=== PATIENT | male | born 1995 | race Two or more races ===

== ENCOUNTER 2025-02-23 03:20 | Emergency (ER) | payer SELFPAY ==
[2025-02-23 03:28] VITALS: BP 106/46; PULSE 110; RESP 19; TEMP 36.6; O2SAT 97; BMI 28.3
--- NOTE | 2025-02-23 03:34 | EKG_ITS ---
[facility] Test Date: 2025-02-23 Pat Name: Jung Glynn Department: Room: - Gender: Male Boiler Maker: : 1995 Requested By: Michael De Anda Order Number: [id number] Reading MD: Michael De Anda Measurements Intervals [place] Rate: 91 P: 65 UT: 134 QRS: 76 QRSD: 89 T: 9 QT: 342 QTc: 422 Interpretive Statements SINUS RHYTHM NONSPECIFIC T-WAVE ABNORMALITY No previous ECG available for comparison /store/S0/[id number]/ecg/[id number].pdf
--- NOTE | 2025-02-23 03:40 | PD.EDRME ---
Rapid Medical Screening Exam RME Arrival date/time: 02/23/25 03:20 Chief Complaint: Abdominal Pain Vital signs: Vital Signs Temperature 97.8 F 02/23/25 03:28 Pulse Rate 110 H 02/23/25 03:28 Respiratory Rate 19 02/23/25 03:28 Blood Pressure 106/46 L 02/23/25 03:28 Pulse Oximetry (%) 97 02/23/25 03:28 Oxygen Delivery Method Room Air 02/23/25 03:28 RME Narrative: 29-year-old male with no significant past medical history presents to the ER complaining of epigastric pain along with seeing bugs on his arms which started a few hours ago after he inhaled some drugs through his nose. I briefly performed a screening evaluation to initiate work-up and expedite care. Complete history, physical exam, and plan of care is deferred to the provider in the main ED. Exam: Head: Normocephalic, atraumatic. Respiratory: Normal effort. No respiratory distress or accessory muscle use. Neuro: Speech normal. Skin: Warm, dry, normal color. Psych: Pleasant. Cooperative. Clinical Impression: Formication versus delirium complicated by epigastric pain
--- NOTE | 2025-02-23 03:55 | PC.NURSE ---
PATIENT LEFT THE ED LOBBY AT 0353, PATIENT AND FAMILY MEMBER WERE SEEN LEAVING ED PARKING LOT.
== END 2025-02-23 03:56 | disposition left against medical advice (07) ==
PROVIDERS: Emergency Provider Emergency Medicine
DX: R10.13 Epigastric pain (principal); R94.31 Abnormal electrocardiogram [ECG] [EKG]; Z53.29 Procedure and treatment not carried out because of patient's decision for other reasons
CPT/HCPCS: 80053; 80307; 81001; 83605; 83690; 84484; 85025; 85610; 87040; 93005; 99281

== ENCOUNTER 2025-02-23 12:35 | Emergency (ER) | payer MEDICAID, SELFPAY ==
[2025-02-23 12:37] VITALS: PULSE 84; O2SAT 100
--- NOTE | 2025-02-23 12:38 | XR_ITS ---
Examination: CT brain head without contrast. 2-D sagittal coronal reconstructions Date and time of exam: February 23, 2025, 1354 hours INDICATIONS: Onset of her mental status today CTDI: vol (mGy): 48.4 DLP: (mGycm): 925 Technique: Multiple CT axial sections of the brain have been obtained, 5 mm slice thickness. Contrast has not been administered. 2-D sagittal, coronal reconstructions have been obtained Low dose protocols were performed. One or more of the following dose reduction techniques were used; automated exposure control, adjustment of the mA and/or KV according to patient size, use of iterative reconstruction technique. Findings: No significant ventricular enlargement. Intra-axial or extra-axial hemorrhage density is not seen. No mass effect or midline shift Basal cisterns are not remarkable. Fourth ventricle is midline. Cranial vault intact. Impression: Negative for acute hemorrhage, mass effect or midline shift
--- NOTE | 2025-02-23 12:43 | EDNOTE_ITS ---
ED General RME/HPI General Chief complaint: Altered Mental Status Stated complaint: ALTERED Time Seen by Provider: 02/23/25 12:37 Arrival date/time: 02/23/25 12:35 CC: Altered mental status HPI patient presents to the ER via EMS who said the patient was at a clinic and has been altered since their arrival. The patient is somewhat confused and intermittently recall his name his date of , he is easily distracted when asked if he has any pain he says no but then says yes. Patient appears anxious and confused. No other complaints EMS reports stable vital signs and route. Brother now at bedside at 1400, brother states the patient began to act abnormal at 2 AM last night, came to the emergency room was triage, and then left with urine and cup without being seen. Patient was then sent over to the clinic who called 911 to transport the patient here. The brother states the patient was drinking all day yesterday but does not know if he took street drugs or anything else. Related Data Allergies Allergy/AdvReac Type Severity Reaction Status Date / Time No Known Allergies Allergy Verified 02/23/25 03:21 Review of Systems Review of Systems Narrative Review of Systems: GEN: No fever, no chills, no weight loss EYES: No discharge, no visual changes, no pain HEENT: No ear pain, no congestion, no sore throat PULM: No shortness of breath, no cough, no congestion CV: No chest pain, no dyspnea on exertion, no palpitations GI: No nausea, no vomiting, no diarrhea, no pain, no constipation : No frequency, no urgency, no dysuria MUSC/SKEL: No joint pain, no back pain SKIN: No rash PSYCH: No hallucinations, no depression HEME/LYMPH: No easy bleeding or bruising tendencies NEURO: No weakness, no headache Past Medical History Social History SMOKING STATUS: Unknown if ever smoked ED Exam Narrative Physical exam: [General: Anxious but not in any acute distress Head normocephalic HEENT: Eyes pupils are PERRLA EOMs are intact tracking. Mouth pink dry membranes uvula is midline swallow symmetrical phonation is normal. Within acceptable limits Neck is supple nontender Chest equal chest rise nontender to palpation Respiratory: Clear to auscultation no wheezes crackles or rubs CV: Rate rhythm is regular no murmurs rubs or clicks Abdomen is soft nontender no masses positive bowel sounds all 4 quadrants Back: No CVA tenderness no spinous process tenderness from cervical spine thor acic and lumbar spine Skin: Intact no petechiae rash induration ulceration or crepitus Extremities: Moving all extremity against resistance cap refill less than 2 seconds neurosensory intact Neuro: Awake alert oriented X1, self, Glascow coma 15 no focal deficits] Course Course Course Narrative: Patient continues to have bizarre behavior. At this time her laboratory results are unremarkable, urine that was positive for methamphetamines the benzos are positive secondary to Ativan being given for his agitation. Patient is much more calm now we will wait for the brother and discharge the patient home Quality Measures none Orders Category Date Time Status EKG (ED ONLY) *Do not use* NOW Care 02/23/25 12:38 Completed Saline [Insert IV] NOW Care 02/23/25 12:[address] head/brain wo con Stat Exams 02/23/25 12:38 Completed EKG (ED Only) Stat Exams 02/23/25 12:38 Ordered Alcohol, Blood Medical Stat Lab 02/23/25 13:36 Completed Ammonia Stat Lab 02/23/25 13:36 Completed B-Type Natriuretic Peptide Stat Lab 02/23/25 13:36 Completed CBC Stat Lab 02/23/25 13:36 Completed Comprehensive Metabolic Panel Stat Lab 02/23/25 13:36 Completed Drug Screen,Urine Stat Lab 02/23/25 15:04 Completed LDH (Lactate Dehydrogenase) Stat Lab 02/23/25 13:36 Completed Magnesium Stat Lab 02/23/25 13:36 Completed Partial Thromboplastin Time Stat Lab 02/23/25 13:36 Completed Prothrombin Time with INR Stat Lab 02/23/25 13:36 Completed Urinalysis, C/S if Indicated Stat Lab 02/23/25 15:04 Completed Midazolam Inj [Versed Inj] Med 02/23/25 13:34 Discontinued 2 mg IVP X1 ONE Ringers Lactated 1000 ml [Lactated Ringers] 1,000 ml Med 02/23/25 13:34 Discontinued IV 999 mls/hr Vital Signs Vital signs: Vital Signs Temperature 98.3 F 02/23/25 12:50 Pulse Rate 103 H 02/23/25 12:50 Respiratory Rate 18 02/23/25 12:50 Blood Pressure 119/76 02/23/25 12:50 Pulse Oximetry (%) 100 02/23/25 12:50 Oxygen Delivery Method Room Air 02/23/25 12:50 Discharge Plan Plan Patient Disposition: HOME (Self Care) Patient condition on transfer: Stable Prescriptions/Referrals Referrals: No Primary/Family,Physician [Primary Care Provider] - In 1 week Milton Christopher MD [Physician, Family Practice] - In 1 week Problem List Clinical Impression: Agitation, Adverse effect of methamphetamines, initial encounter Patient/Caregiver Discharge Instructions Other Activity Instructions:: You will be continued to be agitated until the methamphetamines wear off with your system. Do not take any street drugs from anyone. Education Materials: Understanding Methamphetamine ..., ED Drug Abuse Print Language: Macedonian Stand Alone Forms: Third Screen Media Award Info., Patient Portal Info Letter DANIEL/JESUS Supervising Physician DANIEL/JESUS Supervising Physician: Mario Soliman ENP [facility] Clinical Information Provided by: patient and EMS Medical Records reviewed [facility] and EMS Meds/Rx considered, not ordered None Labs/Rad/Tests considered, not ordered None Chronic Illness/Social Conditions which may negatively complicate care or outcome(s)-explain: None or not applicable EKG Interpretation EKG #1: EKG Interpretation: EKG performed 1325 shows a ventricular rate of 91 GA interval 134 QRS of 8 9 QTc of 391 this is sinus rhythm. Labs Labs: interpreted by vt Lab(s) Interpretation(s): CBC shows no acute leukocytosis anemia thrombocytopenia Coags within acceptable notes CMP shows no significant electrolyte imbalances renal impairment transaminitis or T. bili elevation Ammonia is unremarkable BNP is negative Alcohol level is undetectable. Medication Administration(s) Medication Administration History Discontinued Medications Lactated Ringer's (Lactated Ringers) 1,000 mls @ 999 mls/hr IV .Q1H1M ONE Stop: 02/23/25 14:34 Last Infusion: 02/23/25 14:45 Dose: Infused Documented By: Admin: 02/23/25 13:44 Dose: 999 mls/hr Documented By: BY Midazolam HCl (Midazolam Inj 1 Mg/Ml Vial 2 Ml) 2 mg IVP X1 ONE Stop: 02/23/25 13:35 Last Admin: 02/23/25 13:38 Dose: 2 mg Documented By: PATRICIO
[2025-02-23 12:50] VITALS: BP 119/76; PULSE 103; RESP 18; TEMP 36.8; O2SAT 100
[2025-02-23 12:53] VITALS: BMI 24.1
--- NOTE | 2025-02-23 13:30 | PC.NURSE ---
patient is very paranoid, anxious , not cooperative with medical staff, brother called and states he will be on the way to attempt to calm him down,
[2025-02-23] MEDS: MIDAZOLAM INJ 1 MG/ML VIAL 2 ML 2 MG IVP (13:38)
[2025-02-23] MEDS: RINGERS LACTATED 1000 ML 1,000 ML 999 ML IV (13:44)
[2025-02-23 13:45] LABS: Basophils # (Auto) 0.0 Thou/mm3 (0.0-0.2); Basophils % (Auto) 0 % (0-2.5); Eosinophils # (Auto) 0.1 Thou/mm3 (0.0-0.5); Eosinophils % (Auto) 1 % (0-10); Hematocrit 46.0 % (41.0-53.0); Hemoglobin 16.5 g/dL (13.5-16.0); Immature Granulocytes Auto 0.02 Thou/mm3 (0.00-0.00); Lymphocytes # (Auto) 1.6 Thou/mm3 (1.0-4.8); Lymphocytes % (Auto) 22 % (10-50); Mean Corpuscular HGB Conc 35.9 g/dl (31.0-37.0); Mean Corpuscular Hemoglobin 30.7 pg (25.0-35.0); Mean Corpuscular Volume 86 fL (80-100); Monocytes # (Auto) 0.5 Thou/mm3 (0.0-0.8); Monocytes % (Auto) 7 % (0-12); Neutrophils # (Auto) 5.0 Thou/mm3 (1.8-7.7); Neutrophils % (Auto) 69 % (37-80); Nucleated Red Blood Cell # 0.00 Thou/mm3 (0.00-0.00); Nucleated Red Blood Cell % 0 /100 WBC (0); Platelet Count 270 Thou/mm3 (140-440); RDW Standard Deviation 38.5 fL (35.1-43.9); Red Blood Count 5.37 Miln/mm3 (4.50-5.90); White Blood Count 7.2 Thou/mm3 (3.8-10.6)
[2025-02-23 14:03] LABS: Alanine Aminotransferase 23 U/L (10-49); Albumin, Serum 5.0 gm/dL (3.5-5.0); Albumin/Globulin Ratio 2.2 (1.2-2.2); Alkaline Phosphatase 99 U/L (46-116); Anion Gap 12 (7-16); Aspartate Amino Transferase 20 U/L (0-34); BUN/Creatinine Ratio 14 Ratio (12-20); Bilirubin,Total 1.0 mg/dL (0.3-1.2); Blood Urea Nitrogen 13 mg/dL (9-23); Calcium 10.2 mg/dL (8.3-10.6); Calcium (Corrected) 10.2 mg/dL (8.5-10.1); Carbon Dioxide 26.6 mMol/L (20.0-31.0); Chloride 105 mMol/L (98-107); Creatinine (Component) 0.9 mg/dL (0.6-1.3); Estimated Creatinine Clearance 105.3 mL/min (>60); Globulin 2.3 gm/dL (2.3-3.5); Glucose 110 mg/dL (74-106); INR 1.2 (0.9-1.3); LDH (Lactate Dehydrogenase) 154 U/L (120-246); Magnesium 2.0 mg/dL (1.6-2.6); Osmolality,Calculated 287 (275-295); Partial Thromboplastin Time 28.0 Seconds (22.0-36.0); Potassium 4.1 mMol/L (3.4-5.1); Prothrombin Time 12.2 Seconds (9.0-12.2); Sodium 144 mMol/L (136-145); Total Protein 7.3 gm/dL (5.7-8.2); eGFR > 60 See Note
[2025-02-23 14:04] LABS: Ammonia < 10 uMol/L (11-32); B-Type Natriuretic Peptide < 20 pg/mL (0-100)
[2025-02-23 14:38] LABS: Alcohol, Blood Medical < 3.0 mg/dL (0-10.0)
[2025-02-23 14:59] VITALS: BP 130/90; PULSE 69; RESP 20; TEMP 36.8; O2SAT 99
[2025-02-23 15:16] LABS: Collection Type, Urine Clean Catch; Squamous Epithelial Cell,Urine 0 /hpf (0-5)
[2025-02-23 15:33] LABS: Amphetamine/Methamp Scrn,U Positive (Negative); Barbiturate Screen,Urine Negative (Negative); Benzodiazepines Screen,Urine Positive (Negative); Benzoylecgonine Screen, Ur Negative (Negative); Fentanyl Screen,Urine Negative (Negative); Opiate Screen,Urine Negative (Negative); THC Screen,Urine Negative (Negative)
[2025-02-23 15:38] LABS: Bacteria,Urine Rare; Bilirubin,Urine Negative (Negative); Blood,Urine Negative (Negative); Clarity,Urine Clear (Clear/Hazy); Color,Urine Yellow (Lt Yel-Yel); Culture Indicated,Urine Not Indicated; Glucose, Urine Negative (Negative); Ketones,Urine Negative (Negative); Leukocyte Esterase,Urine Negative (Negative); Nitrite,Urine Negative (Negative); PH,Urine 6.0 (5.0-7.0); Protein,Urine Negative (Neg - Trace); RBC,Urine 7 /hpf (0-3); Specific Gravity,Urine 1.023 (1.001-1.035); Urobilinogen,Urine Negative mg/dL (0.0-1.0); WBC,Urine 1 /hpf (0-5)
[2025-02-23 15:44] VITALS: BP 118/73; PULSE 73; RESP 18; O2SAT 96
[2025-02-23 16:07] VITALS: BP 124/63; PULSE 67; RESP 17; TEMP 36.4; O2SAT 98
[2025-02-23 16:44] VITALS: BP 111/78; PULSE 78; RESP 20; O2SAT 100
== END 2025-02-23 16:52 | disposition home or self-care (01) ==
PROVIDERS: Registered Nurse General Practice; Emergency Provider Emergency Medicine
DX: R41.82 Altered mental status, unspecified (principal); T43.655A Adverse effect of methamphetamines, initial encounter
CPT/HCPCS: 36415; 70450; 80053; 80307; 80320; 81001; 82140; 83615; 83735; 83880; 85025; 85610; 85730; 93005; 96361; 96374; 99284; J2250; J7120; G0480